=== PATIENT | male | born 1965 | race Caucasian/White ===

== ENCOUNTER 2018-08-31 08:53 | Emergency (ER) | payer BC ==
[2018-08-31 09:10] VITALS: BP 114/72
--- NOTE | 2018-08-31 09:16 | UC ---
Hip/Pelvis Pain - HPI Summary HPI Summary: Patient presents to urgent care with 5 days progressive left lateral hip pain. Patient states initially he woke up on thinking he slept wrong. Patient states since this time he's had increasing pain. Patient states he felt like there was a knot over the lateral aspect of his head. Patient with some paresthesias down his lateral aspect of his upper leg. Pain worse with movement and standing. Patient does have range of motion of his knee with increased pain in the hip. No fevers or chills. No drug,. No weakness. Patient without any changes to bowel or bladder. No buttock pain and no back pain. Patient did not take anything for pain. Patient denies new shoes or sporting activities. Patient's without history of similar. Medications reviewed this visit. - History Of Current Complaint Chief Complaint: UCLowerExtremity Stated Complaint: LOWER BACK/LEFT LEG COMPLAINT Time Seen by Provider: 08/31/18 09:12 Hx Obtained From: Patient Pain Intensity: 7 - Allergies/Home Medications Allergies/Adverse Reactions: Allergies Allergy/AdvReac Type Severity Reaction Status Date / Time No Known Allergies Allergy Verified 08/31/18 09:10 Home Medications: Home Medications NK [No Home Medications Reported] 08/31/18 [History Confirmed 08/31/18] PMH/Surg Hx/FS Hx/Imm Hx Previously Healthy: Yes - Surgical History Surgical History: None - Family History Known Family History: Positive: Non-Contributory Negative: Hypertension, Diabetes - Social History Occupation: Employed Full-time Lives: With Family Alcohol Use: None Substance Use Type: None Smoking Status (MU): Never Smoked Tobacco Review of Systems All Other Systems Reviewed And Are Negative: Yes Constitutional: Positive: Negative Skin: Positive: Negative Musculoskeletal: Positive: Other: - left hip pain. Negative: Calf Tenderness, Myalgia Neurological: Positive: Numbness - paresthesia left upper lateral hip Physical Exam - Summary Physical Exam Summary: Vital Signs Reviewed: Yes A+Ox3, obvious discomfort with ambulation, movement Eyes: Conjunctiva Clear, SERGIO. EOM intact and full ENT: Hearing grossly normal Neck: Positive: Supple Respiratory: Positive: No respiratory distress, No accessory muscle use + CTA throughout no w/r Cardiovascular: regular, no m/r 2+ PT abd soft + BS nt/nd no guarding, no distension Musculoskeletal Exam: No spinous process pain c/t/l/s no pain with palp gluteus Pt TTP left lateral hip with direct palp + SLE with pain lateral hip + flex/ext knee with pain left lateral hip + flex/ext ankle + abduct, adduct Neurological: Positive: Alert, + sensation throughout reports decreased sensation left prox, lateral LE Psychological: Positive: Normal Response To examiner Skin: Positive: no rash, no ecchymosis Triage Information Reviewed: Yes Vital Signs: Initial Vital Signs Temp 98.4 F 08/31/18 09:06 Pulse 87 08/31/18 09:06 Resp 18 08/31/18 09:06 BP 114/72 08/31/18 09:06 Pulse Ox 98 08/31/18 09:06 Diagnostics - Radiology No standard instances Radiology Interpretation Completed By: Radiologist - Patient Name: AMILCAR HELTON Medical Record#: [id number] Ordering Physician: Bessie Naranjo MD Acct.#: [id number] : 1965 Age: 53 Sex: M Location: [facility] Exam Date: 08/31/18926 ADM Status: REG ER Order Information: HIP LEFT 2 VIEWS AND PELVIS Accession Number: [id number] CPT: 77757 HISTORY: lateral hip pain with radiation to left leg . COMPARISONS: None relevant available at the time of dictation. VIEWS: 3, Frontal view of the pelvis with frontal and frog-leg views of the left hip FINDINGS: BONE DENSITY: Normal. BONES: There is no displaced fracture. JOINTS: There is mild osteoarthritis of the left hip. ALIGNMENT: There is no dislocation. SOFT TISSUES: Unremarkable. OTHER FINDINGS: None. IMPRESSION: Some mild osteoarthritis. NO ACUTE OSSEOUS INJURY. IF SYMPTOMS PERSIST, RECOMMEND REPEAT IMAGING. <Electronically signed by Yordan Gutierrez MD in OV> 08/31 Dictated By: Yordan Gutierrez MD Dictated Date/Time: 08/31/18949 Transcribed Date/Time: 08/31/18948 Copy to: CC:Bessie Naranjo MD; No Primary Care Phys,[facility] Imaging - [facility] - [facility] - [facility] [id number] [place] [id number] ph ) ph ([phone]) ph ([phone]) This report is only to be considered final once signed by the Provider(s) as displayed in the "< Electronically Signed by >" field (s). Absence of a signature indicates the report is in a draft status and still needs to be finalized. In the event this document was created by someone other than the signing Provider, the individual initiating the document will be listed in the "Entered by:" or "Dictated by:" cuenca. 1 of 1 Hip Injury Course/Dx - Course Course Of Treatment: Patient presents with 5 days progressive left hip pain. Patient states is worse with standing and touching on the direct lateral aspect of the hip. No trauma. No fevers or chills. No analgesia and anti-inflammatory taken. On exam vital signs are stable. Patient obvious discomfort. Patient with pain in the lateral aspect of the hip it's worse with range of motion of the knee. Patient with good CSM is distally. Concern that this may be a bursitis. X-ray checked and is negative for acute trauma cyst shows some mild arthritis. Discussed with patient at length. Call Dr. Flores's office and patient has appointment 11:15. Concern is injection. Patient given crutches. Patient given Motrin here. Comfortable and agreement with plan. Strict return precautions. - Differential Dx/Diagnosis Provider Diagnosis: Hip bursitis, left Discharge - Sign-Out/Discharge Documenting (check all that apply): Patient Departure All imaging exams completed and their final reports reviewed: Yes - Discharge Plan Condition: Stable Disposition: HOME Patient Education Materials: Hip Bursitis (ED) Forms: *Work Release Referrals: Dario Flores MD [Medical Doctor] - (your appointment is at 11:15am today - please arrive 10 minutes early) Additional Instructions: - Use crutches until you can walk normally without a limp - you have an appointment TODAY at 11:15am with Dr. Flores - orthopedic provider. Please arrive 10 minutes early for this appointment - You were given a dose of ibuprofen (Advil, Motrin) at urgent care. You may take a dose of Tylenol before your appointment if you need. - Billing Disposition and Condition Condition: STABLE Disposition: Home
[2018-08-31] MEDS ORDERED: Ibuprofen TAB* 400 MG PO ONE (09:20)
== END 2018-08-31 10:19 | disposition home or self-care (01) ==
LOC: UCCORT 08:53
DX: M70.72 Other bursitis of hip, left hip (principal); Y93.84 Activity, sleeping
CPT/HCPCS: 99212; A9270-GY; G0463